=== PATIENT | female | born 1975 | race Caucasian/White ===

== ENCOUNTER 2022-03-01 12:04 | Emergency (ER) | payer MEDICAID ==
[~2022-03-01] VITALS: Ht 157.5 cm; Wt 63.5 kg
--- NOTE | 2022-03-01 12:19 | NUR ---
bottle line worker Tiffanie at bedside.
[2022-03-01] MEDS ORDERED: IBUPROFEN 600 MG TABLET ONE (12:31)
[2022-03-01] MEDS ORDERED: IBUPROFEN 600 MG TABLET PO ONE (12:45)
--- NOTE | 2022-03-01 13:51 | NUR ---
Patient discharged to home in stable condition. Written and verbal after care instructions given. Patient verbalizes understanding of instructions. Stressed follow up or return to ER for worsening s/s. Pt was given referrals for follow up by hospital social worker as well. Pt ambulated out of ER with steady gait.
--- NOTE | 2022-03-01 14:27 | NUR ---
Social Work consult was requested for a patient in the emergency room for mental health, homeless and substance abuse resources. Patient is a 45-year-old female. Patient presents with depressed mood and congruent affect. Patient states her primary contact is her ex-, Drew ([phone]). Patient states she has been homeless for 3 years. DRAKE provided the patient with homeless resources for [facility] [place] [address] [place] [address] ([phone]) and [facility] [address] [facility] [address] ([phone]). SW gave resources for [facility] [address] [facility] [address]. Patient signed the homeless waiver, and a copy was placed in the patients chart. DRAKE provided the patient with a TAP card. Patient states she has a history of alcohol abuse and DRAKE provided the patient with substance abuse resources for [facility] [address] [facility] [address] ([phone]), [facility] [address] [facility] [address] ([phone]), and [facility] [address] [facility] [address] ([phone]). Patient states she wants to go to [facility] and DRAKE called and faxed the patients clinical information to [facility] (fax: [phone]). Patient denies a history of psychiatric diagnosis. Patient denied suicidal or homicidal ideation. DRAKE provided the patient with mental health resources for [facility] [address] [place] [address] ([phone]). DRAKE placed the resources in the patients chart. DRAKE informed nurse, Charles and Dr. Orozco. Patient called her mother and states her plan for discharge is to take a bus to meet her mother who she will stay with.
== END 2022-03-01 13:52 | disposition home or self-care (01) ==
LOC: EDBD 12:04 → ER 12:04
DX: F10.129 Alcohol abuse with intoxication, unspecified (principal); Z59.00 Homelessness unspecified; R21 Rash and other nonspecific skin eruption
CPT/HCPCS: A4663

== ENCOUNTER 2024-07-18 21:32 | Emergency (ER) | payer MEDICAID, OTHER ==
[~2024-07-18] VITALS: Ht 157.5 cm; Wt 52.2 kg
[2024-07-18 23:11] LABS: *BILIRUBIN,URIN NEGATIVE (NEGATIVE); *BLOOD, URINE NEGATIVE (NEGATIVE); *CLARITY,URINE CLEAR (CLEAR); *COLOR,URINE YELLOW (YELLOW); *KETONES,URINE NEGATIVE (NEGATIVE); *PROTEIN,URINE NEGATIVE (NEGATIVE); *UROBILINOGEN,URINE 0.2 E.U./dl (NORMAL); LEUKOCYTE ESTERASE ,URINE NEGATIVE (NEGATIVE); NITRITE, URINE NEGATIVE (NEGATIVE); PH,URINE 5.5 (5.0-8.0); UGLUCOSE NEGATIVE (NEGATIVE)
[2024-07-18] MEDS ORDERED: MORPHINE SULFATE 2 MG/1 ML DISP.SYRIN ONE (23:15)
[2024-07-18] MEDS ORDERED: ONDANSETRON 4 MG/2 ML VIAL ONE (23:15)
[2024-07-18] MEDS: MORPHINE SULFATE 2 MG/1 ML DISP.SYRIN IV ONE (23:17)
[2024-07-18] MEDS: ONDANSETRON 4 MG/2 ML VIAL IV ONE (23:18)
[2024-07-18 23:20] LABS: BASOPHILS % (AUTO) 0.6 % (0.0-2.0); DIFFERENTIAL COMMENT 0; EOSINOPHILS # (AUTO) 0.2 K/uL (0.0-0.7); EOSINOPHILS % (AUTO) 2.8 % (0.0-7.0); HEMATOCRIT 32.4 % (31.2-41.9); HEMOGLOBIN 10.9 g/dL (10.9-14.3); LYMPHOCYTES % (AUTO) 19.7 % (20.5-51.5); MEAN CORPUSCULAR HEMOGLOBIN 31.4 uug (24.7-32.8); MEAN CORPUSCULAR HGB CONC 34 g/dL (32.3-35.6); MEAN CORPUSCULAR VOLUME 93.5 fL (75.5-95.3); MONOCYTES # (AUTO) 0.5 K/uL (0.1-1.30); MONOCYTES % (AUTO) 9.6 % (0.0-11.0); NEUTROPHILS # (AUTO) 3.6 K/uL (1.8-8.9); NEUTROPHILS % (AUTO) 67.3 % (38.5-71.5); PLATELET COUNT (AUTO) 136 K/uL (179-408); RED BLOOD CELL COUNT(AUTO) 3.46 MIL/uL (3.63-4.92); RED CELL DISTRIBUTION WIDTH 16.3 % (12.3-17.7); WHITE BLOOD COUNT (AUTO) 5.3 K/uL (3.8-11.8)
[2024-07-18 23:21] LABS: *AMPHETAMINE, URINE NEGATIVE (NEGATIVE); *BARBITURATE, URINE NEGATIVE (NEGATIVE); *BENZODIAZEPINE, URINE NEGATIVE (NEGATIVE); *CANNABINOID, URINE NEGATIVE (NEGATIVE); *COCCAINE, URINE NEGATIVE (NEGATIVE); *OPIATE, URINE NEGATIVE (NEGATIVE); *PHENCYCLIDINE SCREEN,URINE NEGATIVE (NEGATIVE); FENTANYL, URINE NEGATIVE (NEGATIVE)
[2024-07-18 23:25] LABS: CALCIUM 9.4 mg/dL (8.5-10.1); CARBON DIOXIDE 27 mmol/L (21-32); CHLORIDE 101 mmol/L (98-107); CREATININE 0.6 mg/dL (0.6-1.3); GLUCOSE 107 mg/dL (74-106); POTASSIUM 3.7 mmol/L (3.5-5.1); SODIUM SERUM 136 mmol/L (136-145); UREA NITROGEN, BLOOD 6 mg/dL (7-18)
[2024-07-18 23:38] LABS: ALANINE AMINOTRANSFERASE 41 U/L (14-59); ALBUMIN 2.6 g/dL (3.4-5.0); ALKALINE PHOSPHATASE 165 U/L (50-136); ASPARTATE AMINOTRANSFERASE 90 U/L (15-37); BILIRUBIN,TOTAL 0.7 mg/dL (0.2-1.0); NT-PRO BNP 85 pg/mL (0-125); TOTAL PROTEIN, SERUM 8.6 g/dL (6.4-8.2)
[2024-07-19 00:05] LABS: ETHANOL < 3 MG/DL (0-10)
[2024-07-19] MEDS ORDERED: CYCL5TAB PO (01:37)
[2024-07-19] MEDS ORDERED: GABA300C PO (01:37)
[2024-07-19 01:54] VITALS: BP 105/53; O2SAT 98
== END 2024-07-19 01:54 | disposition home or self-care (01) ==
LOC: ER 21:41
DX: K74.60 Unspecified cirrhosis of liver (principal); M54.2 Cervicalgia; M54.9 Dorsalgia, unspecified; R11.0 Nausea; R51.9 Headache, unspecified; Z79.899 Other long term (current) drug therapy; Z87.19 Personal history of other diseases of the digestive system; Z20.822 Contact with and (suspected) exposure to COVID-19
CPT/HCPCS: 87804 ×2; 80053; 81003; 83880; 85025; 85610; 85730; 87426; 84484; 36415; 71045; 70450; 72125; 72128; 93005; 99285; 96374; 96375; 80320; 80307; J2405; J2270; A4606; A4663; G0480